=== PATIENT | female | born 1990 | race African-American/Black ===

== ENCOUNTER → 2018-01-17 18:34 | Emergency (ER) | payer OTHER ==
[~2018-01-17 18:34] MED LIST: Amoxicillin PO (*) 500 MG CAP PO ONE; Ibuprofen TAB* 600 MG PO ONE
--- NOTE | 2018-01-17 19:46 | ED ---
Throat Pain/Nasal Congestion - HPI Summary HPI Summary: The patient is a 27 y/o F presenting to [facility] with a chief complaint of a sore throat for five days. The sore throat is accompanied by a productive cough, which worsens the pain, as well as associated CP and dysphagia. The aching pain is currently rated 8/10 in severity. Nonsmoker, no EtOH. - History of Current Complaint Chief Complaint: EDThroatPain Time Seen by Provider: 01/17/18 19:39 Hx Obtained From: Patient Onset/Duration: Sudden Onset, Lasting Days - five, Still Present Severity: Moderate Associated Signs And Symptoms: Positive: Dysphagia Cough: Productive - Allergies/Home Medications Allergies/Adverse Reactions: Allergies Allergy/AdvReac Type Severity Reaction Status Date / Time No Known Allergies Allergy Verified 01/17/18 18:55 PMH/Surg Hx/FS Hx/Imm Hx Endocrine/Hematology History: Denies: Hx Diabetes Respiratory History: Denies: Hx Asthma - Surgical History Surgery Procedure, Year, and Place: none Infectious Disease History: No Infectious Disease History: Denies: Traveled Outside the [place] in Last 30 Days - Family History Known Family History: Negative: Hypertension - Social History Lives: Alone Alcohol Use: None Hx Substance Use: No Hx Tobacco Use: No Review of Systems Positive: Sore Throat, Other - dysphagia Positive: Chest Pain Positive: Cough - productive All Other Systems Reviewed And Are Negative: Yes Physical Exam - Summary Physical Exam Summary: Appearance: Well appearing, no pain distress Skin: warm, dry, reflects adequate perfusion Head/face: normal Eyes: EOMI, MIKHAIL ENT: erythematous pharynx/tonsils enlarged Neck: supple, non-tender Respiratory: CTA, breath sounds present Cardiovascular: RRR, pulses symmetrical Abdomen: non-tender, soft Musculoskeletal: normal, strength/ROM intact Neuro: normal, sensory motor intact, A&Ox3 Triage Information Reviewed: Yes Vital Signs On Initial Exam: Initial Vitals Temp Pulse Resp BP Pulse Ox 99.8 F 87 16 100/66 98 01/17/18 18:51 01/17/18 18:51 01/17/18 18:51 01/17/18 18:51 01/17/18 18:51 Vital Signs Reviewed: Yes Diagnostics - Vital Signs Vital Signs Temp Pulse Resp BP Pulse Ox 01/17/18 18:51 99.8 F 87 16 100/66 98 - Laboratory Lab Results: Lab Results 01/17/18 Range/Units 19:10 Group A Strep Rapid Positive A (Negative) Lab Statement: Any lab studies that have been ordered have been reviewed, and results considered in the medical decision making process. EENT Course/Dx - Course Course Of Treatment: The patient is a 27 y/o F presenting to [facility] with a chief complaint of a sore throat for five days with associated dysphagia and CP from a productive cough, which worsens the current pain to 8/10 in severity. Upon physical exam, the pt's throat was erythematous, and the pharynx is enlarged. In the ED course, rapid strep is positive. She is diagnosed with strep pharyngitis. Patient will be discharged home under stable conditions with instructions for dx, prescription for Amoxicillin and Ibuprofen, and follow up with PCP. She agrees with this plan and understands the need for return to the ED if symptoms change or worsen. - Differential Diagnoses Differential Diagnoses: Pharyngitis, URI/Bronchitis - Diagnoses Provider Diagnoses: Strep pharyngitis Discharge - Sign-Out/Discharge Documenting (check all that apply): Patient Departure - Patient will be discharged home. - Discharge Plan Condition: Stable Disposition: HOME Prescriptions: Amoxicillin 875 mg PO BID #20 tablet Ibuprofen TAB* [Motrin TAB* 600 MG] 600 mg PO Q8H PRN #20 tab MDD 3 PRN Reason: Pain Patient Education Materials: Strep Throat (ED) Referrals: [facility] [Outside] - 3 Days Additional Instructions: Please take medications as prescribed. Follow up with your primary care provider in 2-3 days. Return to the emergency department if any new or worsening symptoms occur. - Billing Disposition and Condition Condition: STABLE Disposition: Home - Attestation Statements Document Initiated by Deshawn: Yes Documenting Scribe: Chyna Diane Provider For Whom Deshawn is Documenting (Include Credential): Dr. Javier Rodrigues MD Scribe Attestation: Chyna Sanders scribed for Dr. Javier Rodrigues MD on 01/17/18 at 2005. Scribe Documentation Reviewed: Yes Provider Attestation: The documentation as recorded by the Chyna lamb accurately reflects the service I personally performed and the decisions made by me, Dr. Javier Rodrigues MD Status of Scribe Document: Viewed
[2018-01-17 19:56] VITALS: BP 110/76
== END | disposition home or self-care (01) ==
LOC: ED 18:34
DX: J02.0 Streptococcal pharyngitis (principal); R13.10 Dysphagia, unspecified; R07.9 Chest pain, unspecified; R05 Cough
CPT/HCPCS: 87651; 99282; A9270-GY